=== PATIENT | female | born 1995 | race Caucasian/White ===

== ENCOUNTER → 2017-08-14 | Outpatient (REF) | payer SELFPAY, BC ==
[2017-08-14 19:46] LABS: FERRITIN 22 NG/ML (8-252); IRON (FE) 80 UG/DL (50-170); TOTAL IRON BINDING CAPACITY 333 UG/DL (250-450)
[2017-08-14 19:47] LABS: VITAMIN B12 LEVEL 391 PG/ML (247-911)
== END ==
LOC: M LAB REF 18:54
DX: D64.9 Anemia, unspecified (principal)

== ENCOUNTER → 2017-08-23 | Outpatient (REF) | payer BC ==
[2017-08-23 15:19] LABS: HEPATITIS B SURFACE ANTIGEN NEGATIVE (NEGATIVE)
[2017-08-23 15:47] LABS: HEPATITIS C VIRUS ABY INDEX 0.2 INDEX (<0.8)
[2017-08-23 15:47] LABS: HEPATITIS B CORE ANTIBODY IGM NEGATIVE (NEGATIVE)
[2017-08-23 15:48] LABS: HIV 1&2 SCREEN CENTAUR NEGATIVE (NEGATIVE)
[2017-08-23 15:49] LABS: HEPATITIS A ANTIBODY IGM NEGATIVE (NEGATIVE)
[2017-08-23 16:09] LABS: CHLAMYDIA DNA AMPLIFICATION NEGATIVE (NEGATIVE); GC DNA AMPLIFICATION NEGATIVE (NEGATIVE)
== END ==
LOC: M LAB REF 13:35
DX: Z72.51 High risk heterosexual behavior (principal)
CPT/HCPCS: 87340